=== PATIENT | female | born 1970 | race Caucasian/White ===

== ENCOUNTER 2018-02-09 17:45 | Inpatient (IN) | payer OTHER ==
[~2018-02-09] VITALS: Ht 170.2 cm; Wt 98.2 kg
[~2018-02-09 17:45] MED LIST: COVARYX TABLET1 EACH PO; LEXAPRO PO; LISINOPRIL-HCT1 EAC2 PO; LYRICA 50 MG50 MG PO; SEROQUEL 100 M100 M1 PO; SYNTHROID88 MCG PO; TOPAMAX 100 MG100 MG PO; ULTRAM50 MG PO; XANAX1 MG PO
[2018-02-09 18:45] VITALS: BP 104/71
[2018-02-09 19:00] VITALS: BP 105/66
[2018-02-09 20:00] VITALS: BP 112/73
[2018-02-09 21:15] VITALS: BP 122/79
[2018-02-09 22:00] VITALS: BP 128/85
[2018-02-09] MEDS ORDERED: ZESTORETIC 10-1 EACH (22:03)
[2018-02-09] MEDS ORDERED: LEXAPRO 10 MG T10 M1 (22:05)
[2018-02-09] MEDS ORDERED: BUTALB-APAP-CA1 EACH PO (22:06)
[2018-02-09] MEDS ORDERED: ESTROGEN-METHY1 EAC3 (22:08)
[2018-02-09] MEDS ORDERED: REXULTI1 MG (22:09)
[2018-02-09] MEDS ORDERED: ONDANSETRON HCL4 M2 (22:10)
[2018-02-09] MEDS ORDERED: PROTONIX 20 MG20 M1 PO (22:11)
[2018-02-09 23:00] VITALS: BP 105/67
[2018-02-10] VITALS (11 sets, daily range): BP systolic 111–174; BP diastolic 83–108
[2018-02-10 05:47] LABS: HEMOGLOBIN 11.1 gm/dL (12.0-15.0); MCH 23.9 pg (26.0-34.0); MCHC 31.6 g/dL (28.0-37.0); MCV 75.7 fL (80.0-100.0); RBC 4.62 mil/uL (4.20-5.00); WBC 7.1 thou/uL (4.0-11.0)
[2018-02-10 05:54] LABS: CALCIUM 8.6 mg/dL (8.5-10.1); CREATININE 0.9 mg/dL (0.6-1.0); POTASSIUM 4.1 mmol/L (3.5-5.1)
== END 2018-02-10 11:52 | disposition home or self-care (01) | DRG 918 ==
LOC: ICU 17:45 → ENTRNSPT 02-10 11:39 → EDTRNSPTSTS 02-10 11:44 → ICU 02-10 11:52
PROVIDERS: Hospitalist
DX: T42.4X4A Poisoning by benzodiazepines, undetermined, initial encounter (principal); I10 Essential (primary) hypertension; G43.909 Migraine, unspecified, not intractable, without status migrainosus; F10.10 Alcohol abuse, uncomplicated; F41.9 Anxiety disorder, unspecified; Y92.89 Other specified places as the place of occurrence of the external cause; Z90.710 Acquired absence of both cervix and uterus; Z91.040 Latex allergy status; Z79.899 Other long term (current) drug therapy
CPT/HCPCS: 10078